=== PATIENT | female | born 1990 | race Two or more races ===

== ENCOUNTER 2018-04-06 10:54 | Emergency (ER) | payer MEDICAID, OTHER ==
[~2018-04-06] VITALS: Ht 157.5 cm; Wt 99.8 kg
[2018-04-06 11:29] VITALS: BP 109/64
[2018-04-06] MEDS ORDERED: TINACTIN30 GM TP (11:36)
[2018-04-06 11:39] VITALS: BP 109/64
--- NOTE | 2018-04-06 11:39 | Emergency Room Report ---
History of Present Illness General Chief Complaint: Pain Source: Patient Present Illness HPI Patient present with complaints of skin rash to the right foot Reports that she has seen an urgent clinic on 2 different occasions and has been given triple antibiotic ointment Does not feel that the rash is improving There is some itching to the area Mainly to the medial aspect of the base of the foot and also several toes denies any fevers or chills denies any other trauma Allergies: Coded Allergies: No Known Allergies (Unverified , 04/06/18) Patient History Past Medical History: see triage record Pertinent Family History: none Last Menstrual Period: 03/08/18 Reviewed Nursing Documentation: PMH: Agreed; PSxH: Agreed Nursing Documentation-PMH Past Medical History: No Stated History Hx Asthma: Yes Review of Systems All Other Systems: negative except mentioned in HPI Physical Exam Vital Signs Date Time Temp Pulse Resp B/P (MAP) Pulse Ox O2 Delivery O2 Flow Rate FiO2 04/06/18 11:15 98.0 68 18 109/64 96 Room Air 98.1 Sp02 EP Interpretation: reviewed, normal General Appearance: well appearing, no apparent distress Head: normocephalic, atraumatic Eyes: bilateral eye PERRL, bilateral eye EOMI ENT: normal pharynx Neck: supple Musculoskeletal: normal inspection, back normal Neurologic: alert, oriented x3, responsive Skin: other - Several areas of increased demarcation on the medial aspect of the right foot also at the base of the second and third toe, indicative of likely fungal infection Lymphatic: no adenopathy Medical Decision Making Diagnostic Impression: Primary Impression: foot fungus ER Course Patient's conical exam is consistent with likely fungal infection patient is provided with ointment Will keep the area dry And is stable for close outpatient follow-up She was provided with podiatry follow-up if there is any continued discomfort Last Vital Signs Date Time Temp Pulse Resp B/P (MAP) Pulse Ox O2 Delivery O2 Flow Rate FiO2 04/06/18 11:29 98.1 69 18 109/64 96 Room Air 98.1 Status: unchanged Disposition: HOME, SELF-CARE Condition: Stable Scripts Tolnaftate (TINACTIN) 30 Gm Cream..g. 30 GM TP BID for 7 Days, GM Prov: Akila Watson DO 04/06/18 Referrals: NOT [facility]OSEN [facility]/,REFERRING (PCP) Vincent Merino DPM Patient Instructions: Athlete's Foot, [id number] Additional Instructions: Patient is provided with the discharge instructions notified to follow up with primary doctor in the next 2-3 days otherwise return to the er with any worsening symptoms. Please note that this report is being documented using [employer] technology. This can lead to erroneous entry secondary to incorrect interpretation by the dictating instrument. Akila Watson DO April 06, 2018 11:39
== END 2018-04-06 11:40 | disposition home or self-care (01) ==
LOC: EMR 11:27
DX: B49 Unspecified mycosis (principal); J45.909 Unspecified asthma, uncomplicated
CPT/HCPCS: 99283

== ENCOUNTER 2018-04-20 14:21 | Emergency (ER) | payer MEDICAID ==
[~2018-04-20] VITALS: Ht 157.5 cm; Wt 103.4 kg
[~2018-04-20 14:21] MED LIST: TINACTIN30 GM TP
[2018-04-20] MEDS ORDERED: Acetaminophen 500mg (ES) tab ORAL ONE (15:15)
[2018-04-20 15:17] VITALS: BP 105/51
--- NOTE | 2018-04-20 15:18 | Emergency Room Report ---
History of Present Illness General Chief Complaint: Headache Source: Patient Present Illness HPI 27-year-old female patient presents to ER complaining of headache for the past 3 days. Reports the headache is generalized. Denies vision loss or changes. Denies ringing in her ears. Reports single episode of vomiting previously, denies vomiting today. Denies blood in vomit. Denies trauma. Reports history of migraines, similar headaches in the past.. Reports his previous right other medications prescribed by primary care provider but they have not worked . Also complains of 2 menstrual cycles this month. Denies pain with urination. Denies vaginal discharge. Denies hematuria. Denies . Denies syncope or dizziness. Reports hx of allergies. Denies neck or calf pain. Allergies: Coded Allergies: No Known Allergies (Unverified , 04/06/18) Patient History Past Medical History: see triage record Last Menstrual Period: 04/20/18 Now: No : 0 Para: 0 Reviewed Nursing Documentation: PMH: Agreed; PSxH: Agreed Nursing Documentation-PMH Past Medical History: No History, Except For Hx Asthma: Yes Review of Systems All Other Systems: negative except mentioned in HPI Physical Exam Vital Signs Date Time Temp Pulse Resp B/P (MAP) Pulse Ox O2 Delivery O2 Flow Rate FiO2 04/20/18 14:48 98.5 69 20 105/51 97 Room Air 98.4 Sp02 EP Interpretation: reviewed, normal General Appearance: well appearing, no apparent distress, alert, GCS 15, non- toxic Head: normocephalic, atraumatic Eyes: bilateral eye normal inspection, bilateral eye PERRL ENT: hearing grossly normal, normal pharynx, no angioedema, normal voice, uvula midline, moist mucus membranes Neck: full range of motion, no meningismus, no bony tend Respiratory: lungs clear, normal breath sounds, no rhonchi, no respiratory distress, no accessory muscle use, no wheezing, speaking full sentences Cardiovascular #1: regular rate, rhythm, no edema Gastrointestinal: non tender, soft, no mass, non-distended, no guarding, no rebound Genitourinary: no CVA tenderness Musculoskeletal: back normal, digits/nails normal, gait/station normal, normal range of motion, non-tender Neurologic: alert, oriented x3, responsive, apprentice pattern maker III-XII nml as tested, motor strength/tone normal, sensory intact, cerebellar normal, normal gait, speech normal Psychiatric: mood/affect normal Skin: no rash Lymphatic: no adenopathy Medical Decision Making PA Attestation Dr. Watson is my supervising Physician whom patient management has been discussed with. Diagnostic Impression: Primary Impression: Headache Additional Impression: UTI (urinary tract infection) ER Course Pt presents to ED c/o headache and two menstrual cycles in one month. DDX considered but are not limited to migraine, cluster VELASQUEZ, tension VELASQUEZ, meningitis, sinus VELASQUEZ, UTI, , abnormal uterine bleeding. No neck pain, patient afebrile, no meningismus, low suspicion for meningitis, does not require work up at this time. No focal neuro deficits, no recent trauma, hx of similar headaches, patient does not require imaging at this time. VITAL SIGNS are WNL, patient is afebrile Ordered: VELASQUEZ Medication, UA, urine . - Tylenol - Metoclopramide 10mg IM for pain, N/V; possible SE: tics, spasm; CI seizures, HTN. Provide Benadryl to prevent SE development. - Benadryl 25mg IM ; possible SE: drowsiness, patient reports she does not get drowsy from taking Benadryl. Patient observed following fenestration medication. Patient given discharged home. ER COURSE: PE benign, no abdominal TTP, cranial nerves intact as tested, no focal neuro deficits. UA shows 2+ leukocyte esterase, 2-4 WBCs, moderate amount of bacteria, also moderate epithelial cells present, cannot rule out UTI, will provide antibiotic treatment for patient, informed patient's symptoms of headache could be related to UTI. urine negative Informed patient of results. Will provide further medication for relief of VELASQUEZ. Hx of migraines, symptoms consistent with migraine vs sinus VELASQUEZ vs UTI. Will provided Excedrin Migraine rx to patient. informed patient to take Claritin for allergy symptoms help prevent sinus headaches. Follow-up with [facility] to discuss multiple menstrual periods less than 21 days consistent with polymenorrhea. Needs further evaluation and outpatient workup to determine underlying etiology of symptoms. Discuss control medication with OBGYN. Patient has no signs of anemia, no syncopal episodes, no dizziness , patient does not require further workup and imaging at this time. ER precautions given. Follow-up neurology for further diagnosis and treatment and management of migraine headaches. Patient reports pain improved. Patient is AOx3, neurologically intact, nontoxic appearing, and ambulatory. DISCHARGE: -Rx provided Excedrin migraine -Rx provided for Keflex At this time pt is stable for d/c to home. Patient is resting comfortably, in no acute distress, nontoxic appearing, talking and smiling. Will provide with patient care instructions and any necessary prescriptions. Patient to take medication as instructed. Care plan and follow-up instructions provided. Patient questions asked and answered. Patient instructed to follow-up with primary care provider in the next 3 days and discuss further referral with PCP to neurologist. ER precautions given. Patient instructed to return to ER immediately for any new or worsening of symptoms including but not limited to fever, neck stiffness , vision changes, and neurological symptoms. - Please note that this Emergency Department Report was dictated using [employer] mat inspector technology software, occasionally this can lead to erroneous entry secondary to interpretation by the dictation equipment. Labs Test 04/20/18 15:20 Urine Color Yellow Urine Appearance Clear Urine pH 5 (4.5-8.0) Urine Specific [place] 1.030 (1.005-1.035) Urine Protein 2+ (NEGATIVE) Urine Glucose (UA) Negative (NEGATIVE) Urine Ketones Negative (NEGATIVE) Urine Occult Blood 5+ (NEGATIVE) Urine Nitrite Negative (NEGATIVE) Urine Bilirubin Negative (NEGATIVE) Urine Urobilinogen Normal MG/DL (0.0-1.0) Urine Leukocyte Esterase 2+ (NEGATIVE) Urine RBC Tntc /HPF (0 - 2) Urine WBC 2-4 /HPF (0 - 2) Urine Squamous Epithelial Cells Moderate /LPF (NONE/OCC) Urine Bacteria Moderate /HPF (NONE) Urine HCG, Qualitative Negative (NEGATIVE) Last Vital Signs Date Time Temp Pulse Resp B/P (MAP) Pulse Ox O2 Delivery O2 Flow Rate FiO2 04/20/18 14:48 98.5 69 20 105/51 97 Room Air 98.4 Disposition: HOME, SELF-CARE Condition: Stable Scripts Cephalexin* (KEFLEX*) 500 Mg Capsule 500 MG ORAL EVERY 12 HOURS, #14 CAP 0 Refills Prov: Get [place] P.ATheresa 04/20/18 Aspirin/Acetaminophen/Caffeine (EXCEDRIN MIGRAINE CAPLET) 1 Each Tablet 1 EACH PO TID, #30 TAB Prov: Get [place].Zeke 04/20/18 Referrals: [facility],REFERRING (PCP) Patient Instructions: Abnormal Uterine Bleeding, [id number], Menorrhagia, [id number], Migraine Headache, Sinus Headache, Urinary Tract Infection, Easy- to-Read Additional Instructions: Followup with primary care provider in 3 -5 days. Discuss further treatment and referral to neurology. Follow-up with [facility]. Take medications as directed. Patient questions asked and answered. ER precautions given, patient instructed to return to ER immediately for any new or worsening of symptoms. Get [place] Apr 20, 2018 15:18
[2018-04-20 15:42] LABS: APPEARANCE,URINE CLEAR; BILIRUBIN, URINE NEGATIVE (NEGATIVE); GLUCOSE, URINE (UA) NEGATIVE (NEGATIVE); KETONES,URINE NEGATIVE (NEGATIVE); LEUKOCYTE ESTERASE ,URINE 2+ (NEGATIVE); NITRITE,URINE NEGATIVE (NEGATIVE); PH,URINE 5 (4.5-8.0); PROTEIN,URINE 2+ (NEGATIVE); UROBILINOGEN,URINE NORMAL MG/DL (0.0-1.0)
[2018-04-20 15:45] LABS: COLOR,URINE YELLOW
[2018-04-20] MEDS ORDERED: Metoclopramide 10mg/2ml Inj IM ONE (16:00)
[2018-04-20] MEDS ORDERED: EXCEDRIN MIGRA1 EAC1 PO (16:24)
[2018-04-20] MEDS ORDERED: CEPHALEXIN500 MG ORAL (16:24)
[2018-04-20 16:39] VITALS: BP 105/51
== END 2018-04-20 16:42 | disposition home or self-care (01) ==
LOC: EMR 15:04
DX: R51 Headache (principal); N39.0 Urinary tract infection, site not specified; J45.909 Unspecified asthma, uncomplicated
CPT/HCPCS: 81003; 81025; 87086; 96372; 99284; J2765

== ENCOUNTER 2018-05-11 13:34 | Emergency (ER) | payer MEDICAID, OTHER ==
[~2018-05-11] VITALS: Ht 157.5 cm; Wt 99.8 kg
[~2018-05-11 13:34] MED LIST changes: +CEPHALEXIN500 MG ORAL; +EXCEDRIN MIGRA1 EAC1 PO
[2018-05-11] MEDS ORDERED: ALBUTEROL2.5 MG/3 M INH (13:48)
[2018-05-11] MEDS ORDERED: PEPCID AC20 M2 PO (14:10)
--- NOTE | 2018-05-11 14:11 | Emergency Room Report ---
History of Present Illness General Chief Complaint: Abdominal Pain Source: Patient Present Illness HPI 27-year-old female with history of asthma p/w epigastric abd pain for 2 weeks. Patient states pain started gradually , localized to epigastric area, non radiating, burning in nature, intermittent. No relieving or exacerbating factors. Is the first time patient had this pain. denies chronic NSAID use. Denies black or bloody stools. Denies nvd. Denies fever, chills. No hx of abdominal surgeries. No hx of endoscopies/colonoscopies. Allergies: Coded Allergies: No Known Allergies (Unverified , 04/06/18) Patient History Past Medical History: see triage record Past Surgical History: none Pertinent Family History: none Last Menstrual Period: Irregular: 05/03/18 Now: No : 0 Para: 0 Reviewed Nursing Documentation: PMH: Agreed; PSxH: Agreed Nursing Documentation-PMH Hx Asthma: Yes Review of Systems All Other Systems: negative except mentioned in HPI Physical Exam Vital Signs Date Time Temp Pulse Resp B/P (MAP) Pulse Ox O2 Delivery O2 Flow Rate FiO2 05/11/18 13:45 98.3 75 16 118/68 96 98.2 Sp02 EP Interpretation: reviewed, normal General Appearance: alert, GCS 15, non-toxic, mild distress Head: normocephalic, atraumatic Eyes: bilateral eye normal inspection, bilateral eye PERRL, bilateral eye EOMI ENT: normal ENT inspection, normal pharynx, normal voice, moist mucus membranes Neck: normal inspection, full range of motion, supple Respiratory: normal inspection, lungs clear, normal breath sounds, no respiratory distress, no retraction, no wheezing, speaking full sentences, chest symmetrical Cardiovascular #1: normal inspection, regular rate, rhythm, no edema, normal capillary refill Cardiovascular #2: 2+ radial (R), 2+ radial (L) Gastrointestinal: other - Epigastric tenderness without guarding or rigidity Butler sign is negative nontender elsewhere in the abdomen no CVA tenderness bilaterally Musculoskeletal: normal inspection, back normal, normal range of motion, non- tender Neurologic: normal inspection, alert, oriented x3, responsive, motor strength/ tone normal, sensory intact, normal gait, speech normal Psychiatric: normal inspection, judgement/insight normal, memory normal Skin: normal inspection, normal color, no rash, warm/dry, well hydrated, normal turgor Medical Decision Making Diagnostic Impression: Primary Impression: Epigastric abdominal pain ER Course 27-year-old female with upper abdominal pain for 2 weeks Differential Diagnosis: Gastritis, gastroenteritis, biliary colic, UTI/pyelo Plan: Basic labs, ua Pepcid, maalox, pain control Gallbladder ultrasound ER course: Patient has remained stable during ED stay. Pain improved. Repeat abdominal exam is nontender. Tolerating PO US performed: no signs cholecystitis Disposition: Patient is to be discharged to home. Prescriptions given are Pepcid Patient is instructed to follow up with their primary care doctor within 5 days. Strict return precautions discussed with patient such as fever, chills, worsening/severe abdominal pain, nausea, vomiting, black or bloody stools, which may indicate severe illness. Patient verbalizes understanding and agrees with plan. Please note that this Emergency Department Report was dictated using [employer] roller polisher technology software, occasionally this can lead to erroneous entry secondary to interpretation by the dictation equipment Laboratory Tests Test 05/11/18 13:56 05/11/18 14:05 Urine Color Pale yellow Urine Appearance Clear Urine pH 6 (4.5-8.0) Urine Specific [place] 1.020 (1.005-1.035) Urine Protein Negative (NEGATIVE) Urine Glucose (UA) Negative (NEGATIVE) Urine Ketones Negative (NEGATIVE) Urine Occult Blood Negative (NEGATIVE) Urine Nitrite Negative (NEGATIVE) Urine Bilirubin Negative (NEGATIVE) Urine Urobilinogen 1 MG/DL (0.0-1.0) H Urine Leukocyte Esterase 2+ (NEGATIVE) H Urine RBC 2-4 /HPF (0 - 2) H Urine WBC 5-10 /HPF (0 - 2) H Urine Squamous Epithelial Cells Many /LPF (NONE/OCC) H Urine Bacteria Few /HPF (NONE) Urine HCG, Qualitative Negative (NEGATIVE) White Blood Count 7.4 K/UL (4.8-10.8) Red Blood Count 5.18 M/UL (4.20-5.40) Hemoglobin 13.3 G/DL (12.0-16.0) Hematocrit 42.2 % (37.0-47.0) Mean Corpuscular Volume 81 FL (80-99) Mean Corpuscular Hemoglobin 25.6 PG (27.0-31.0) L Mean Corpuscular Hemoglobin Concent 31.4 G/DL (32.0-36.0) L Red Cell Distribution Width 14.0 % (11.6-14.8) Platelet Count 211 K/UL (150-450) Mean Platelet Volume 11.4 FL (6.5-10.1) H Neutrophils (%) (Auto) 54.5 % (45.0-75.0) Lymphocytes (%) (Auto) 30.4 % (20.0-45.0) Monocytes (%) (Auto) 5.5 % (1.0-10.0) Eosinophils (%) (Auto) 9.0 % (0.0-3.0) H Basophils (%) (Auto) 0.7 % (0.0-2.0) Sodium Level 136 MMOL/L (136-145) Potassium Level 3.8 MMOL/L (3.5-5.1) Chloride Level 100 MMOL/L (98-107) Carbon Dioxide Level 29 MMOL/L (21-32) Anion Gap 7 mmol/L (5-15) Blood Urea Nitrogen 7 mg/dL (7-18) Creatinine 0.8 MG/DL (0.55-1.30) Estimate Glomerular Filtration Rate > 60 mL/min (>60) Glucose Level 128 MG/DL (74-106) H Calcium Level 8.9 MG/DL (8.5-10.1) Total Bilirubin 0.3 MG/DL (0.2-1.0) Aspartate Amino Transferase (AST) 11 U/L (15-37) L Alanine Aminotransferase (ALT) 25 U/L (12-78) Alkaline Phosphatase 69 U/L (46-116) Total Protein 7.7 G/DL (6.4-8.2) Albumin 4.0 G/DL (3.4-5.0) Globulin 3.7 g/dL Albumin/Globulin Ratio 1.1 (1.0-2.7) Lipase 122 U/L (73-393) Human Chorionic Gonadotropin, Quant < 1 mIU/mL (1-6) L CT/MRI/US Diagnostic Results CT/MRI/US Diagnostic Results : Imaging Test Ordered: US abd Impression no gallstones, cbd normal, no free fluid Last Vital Signs Date Time Temp Pulse Resp B/P (MAP) Pulse Ox O2 Delivery O2 Flow Rate FiO2 05/11/18 13:45 98.3 75 16 118/68 96 98.2 Disposition: HOME, SELF-CARE Condition: Improved Scripts Famotidine (PEPCID AC) 20 Mg Tablet 20 MG PO QHS for 14 Days, #14 TAB 0 Refills Prov: Lorna Jaramillo M.D. 05/11/18 Patient Instructions: Abdominal Pain, Adult Lorna Jaramillo M.D. May 11, 2018 14:10
[2018-05-11 14:14] LABS: APPEARANCE,URINE CLEAR; BILIRUBIN, URINE NEGATIVE (NEGATIVE); COLOR,URINE PALE YELLOW; GLUCOSE, URINE (UA) NEGATIVE (NEGATIVE); KETONES,URINE NEGATIVE (NEGATIVE); LEUKOCYTE ESTERASE ,URINE 2+ (NEGATIVE); NITRITE,URINE NEGATIVE (NEGATIVE); PH,URINE 6 (4.5-8.0); PROTEIN,URINE NEGATIVE (NEGATIVE); UROBILINOGEN,URINE 1 MG/DL (0.0-1.0)
[2018-05-11] MEDS ORDERED: Mylanta II UD 30ml ORAL ONE (14:15)
[2018-05-11] MEDS ORDERED: Dicyclomine HCl 10mg/5ml oral soln ORAL ONE (14:15)
[2018-05-11] MEDS ORDERED: Lidocaine 2% Visc 15ml soln ORAL ONE (14:15)
[2018-05-11 14:24] LABS: BASOPHILS % (AUTO) 0.7 % (0.0-2.0); HEMATOCRIT 42.2 % (37.0-47.0); HEMOGLOBIN 13.3 G/DL (12.0-16.0); LYMPHOCYTES % (AUTO) 30.4 % (20.0-45.0); MEAN CORPUSCULAR VOLUME 81 FL (80-99); MONOCYTES % (AUTO) 5.5 % (1.0-10.0); NEUTROPHILS % (AUTO) 54.5 % (45.0-75.0); PLATELET COUNT 211 K/UL (150-450); RED BLOOD COUNT 5.18 M/UL (4.20-5.40); WHITE BLOOD COUNT 7.4 K/UL (4.8-10.8)
[2018-05-11 14:37] LABS: ANION GAP 7 mmol/L (5-15); BLOOD UREA NITROGEN 7 mg/dL (7-18); CALCIUM 8.9 MG/DL (8.5-10.1); CARBON DIOXIDE 29 MMOL/L (21-32); CHLORIDE 100 MMOL/L (98-107); CREATININE 0.8 MG/DL (0.55-1.30); POTASSIUM 3.8 MMOL/L (3.5-5.1); SODIUM 136 MMOL/L (136-145)
[2018-05-11 14:42] LABS: ALANINE AMINOTRANSFERASE 25 U/L (12-78); ALBUMIN/GLOBULIN RATIO 1.1 (1.0-2.7); ALKALINE PHOSPHATASE 69 U/L (46-116); ASPARTATE AMINO TRANSFERASE 11 U/L (15-37); BILIRUBIN,TOTAL 0.3 MG/DL (0.2-1.0)
[2018-05-11 15:12] VITALS: BP 136/81
--- NOTE | 2018-05-11 15:50 | Diagnostic Imaging Report ---
Indication:Abdominal pain Technique: Grayscale and duplex Doppler imaging of the abdomen performed. Comparison: None Findings: Liver is echogenic consistent with fatty infiltration. The demonstrated part of the pancreas, gallbladder, aorta and IVC, both kidneys, spleen appear unremarkable. There is no biliary ductal dilatation identified. CBD is 4 mm. Doppler evaluation of the main portal vein shows patency. There is no ascites. No hydronephrosis seen. Impression: Fatty liver
== END 2018-05-11 15:11 | disposition home or self-care (01) ==
LOC: EMR 14:08
DX: R10.13 Epigastric pain (principal); J45.909 Unspecified asthma, uncomplicated
CPT/HCPCS: 36415; 76700; 80053; 81003; 81025; 83690; 84702; 85025; 96374; 99284; S0028